=== PATIENT | male | born 1955 | race Caucasian/White ===

== ENCOUNTER 2021-09-24 04:14 | Emergency (ER) | payer MEDICARE ==
[2021-09-24 04:54] VITALS: TEMP 97.9
--- NOTE | 2021-09-24 06:51 | ED ---
Psych HPI - General Source: patient Mode of arrival: EMS - History of Present Illness MD Complaint: other -: hour(s) Associated Psychiatric Symptoms: none Quality: constant Improves With: none Worsens With: none Context: recent alcohol abuse <Louie Aguirre - Last Filed: 09/24/21 06:48> <Joseph Gallegos - Last Filed: 09/25/21 14:12> - General Chief Complaint: Psychiatric Symptoms Stated Complaint: Mental Health Time Seen by Provider: 09/24/21 04:29 - History of Present Illness Initial Comments: This patient is 66-year-old man who presents here to have evaluation of superficial laceration to the left side of his neck. The patient states she had been drinking, he had his knife out and then he slipped and caused a superficial laceration to the left side of his neck. The patient had been making suicidal statements. He states that he is not really feeling suicidal but was attention seeking. (TimothyLouie) Review of Systems ROS Other: All systems not noted in ROS Statement are negative. Constitutional: Denies: fever ENT: Denies: throat pain Respiratory: Denies: cough, dyspnea Cardiovascular: Denies: chest pain, palpitations, syncope Gastrointestinal: Denies: abdominal pain, vomiting, diarrhea Musculoskeletal: Denies: back pain Skin: Denies: rash Neurological: Denies: headache, weakness, numbness Psychiatric: Reports: depression. Denies: auditory hallucinations, visual hallucinations, homicidal thoughts, suicidal thoughts <Louie Aguirre - Last Filed: 09/24/21 06:48> ROS Other: All systems not noted in ROS Statement are negative. <Joseph Gallegos - Last Filed: 09/25/21 14:12> ROS Statement: Those systems with pertinent positive or pertinent negative responses have been documented in the HPI. Past Medical History Past Medical History: Asthma, COPD, Eye Disorder History of Any Multi-Drug Resistant Organisms: None Reported Past Surgical History: Hernia Repair, Orthopedic Surgery, Tonsillectomy Past Psychological History: Depression Smoking Status: Current every day smoker Past Alcohol Use History: Occasional Past Drug Use History: Marijuana <AlphonseLouie hung - Last Filed: 09/24/21 06:48> General Exam Limitations: no limitations General appearance: alert, in no apparent distress Head exam: Present: atraumatic, normocephalic Eye exam: Present: normal appearance. Absent: scleral icterus, conjunctival injection ENT exam: Present: normal oropharynx Neck exam: Present: other (Superficial laceration anterior neck, left aspect.) Respiratory exam: Present: normal lung sounds bilaterally. Absent: respiratory distress, wheezes, rales, rhonchi, stridor Cardiovascular Exam: Present: regular rate, normal rhythm, normal heart sounds. Absent: systolic murmur, diastolic murmur, rubs, gallop GI/Abdominal exam: Present: soft. Absent: tenderness Extremities exam: Present: normal inspection, normal capillary refill Neurological exam: Present: alert, CN II-XII intact Psychiatric exam: Absent: agitated, anxious, flat affect, manic, homicidal ideation, suicidal ideation Skin exam: Present: warm, dry, normal color. Absent: rash <Louie Aguirre - Last Filed: 09/24/21 06:48> Course Vital Signs 09/24/21 09/24/21 04:23 10:26 Temperature 97.9 F Pulse Rate 96 89 Respiratory 15 16 Rate Blood Pressure 162/96 110/72 O2 Sat by Pulse 97 99 Oximetry Medical Decision Making <Joseph Gallegos - Last Filed: 09/25/21 14:12> - Medical Decision Making EPS evaluated the patient and the patient they determined with the psychiatrist that the patient be discharged home with a safety. Patient was in agreement patient was given a safety plan. (Joseph Gallegos) Disposition <Louie Aguirre - Last Filed: 09/24/21 06:48> Is patient prescribed a controlled substance at d/c from ED?: No Time of Disposition: 10:21 <Joseph Gallegos - Last Filed: 09/25/21 14:12> Clinical Impression: Situational depression Disposition: HOME SELF-CARE Referrals: Wes Trujillo MD [Primary Care Provider] - 1-2 days
[2021-09-24 10:28] VITALS: BP 110/72; PULSE 89; RESP 16
== END 2021-09-24 10:27 | disposition home or self-care (01) ==
LOC: EC 04:14
DX: F43.21 Adjustment disorder with depressed mood (principal); F17.200 Nicotine dependence, unspecified, uncomplicated; J44.9 Chronic obstructive pulmonary disease, unspecified
CPT/HCPCS: 82075; 99283

== ENCOUNTER → 2022-12-14 | Outpatient (CLI) | payer MEDICARE ==
[2022-12-14 17:06] LABS: HCT 39.7 % (39.6-50.0); HGB 12.8 d/dL (13.0-17.0); MCH 32.2 pg (27.0-32.0); MCHC 32.2 d/dL (32.0-37.0); Mean Platelet Volume 10.7 FL (9.5-12.2); NRBC Per 100 WBC 0 X 10*3/uL (0.00-0.01); Platelet Count 289 X 10*3/uL (140-440); RBC 3.97 X 10*6/uL (4.40-5.60); RDW 19.9 % (11.5-14.5); WBC 5.31 X 10*3/uL (4.50-10.00)
[2022-12-14 17:13] LABS: Blood Urea Nitrogen 10.1 mg/dL (9.0-27.0); Carbon Dioxide 29.8 mmol/L (21.6-31.8); Chloride 99 mmol/L (96-109); Potassium 4.2 mmol/L (3.5-5.5); Sodium 136 mmol/L (135-145)
== END | disposition home or self-care (01) ==
LOC: LABWHC1 11:23
PROVIDERS: ATTEND Student in an Organized Health Care Education/Training Program
DX: Z01.812 Encounter for preprocedural laboratory examination (principal); I25.5 Ischemic cardiomyopathy
CPT/HCPCS: 36415; 80051; 82565; 84520; 85027

== ENCOUNTER 2022-12-18 07:45 | Day surgery (SDC) | payer MEDICARE ==
[2022-12-13 10:58] VITALS: BMI 24.4
[~2022-12-18 07:45] MED LIST: ALPRAZolam 0.25 MG TAB PO PRN; ALPRAZolam 0.5 MG TAB PO PRN; ASPIRIN 325 MG TAB PO ONE; ATORVASTATIN 80 MG TAB PO ONE; HEPARIN SODIUM,PORCINE (1 ML) 2,500 UNIT in SODIUM CHLORIDE 0.9% 250 ML IRRIGATION PRN; HEPARIN SODIUM,PORCINE 10,000 UNIT in SODIUM CHLORIDE 0.9% 1,000 ML IRRIGATION PRN; NITROGLYCERIN SL TABS 0.4 MG TAB SUBLINGUAL PRN; SODIUM CHLORIDE 0.9% 1,000 ML in EMPTY BAG 1 BAG IV SCH
[2022-12-18 08:25] VITALS: TEMP 98
[2022-12-18] MEDS ORDERED: fentaNYL (PF) 50 MCG/ML 2 ML AMP ONE (09:02)
[2022-12-18] MEDS ORDERED: VERAPAMIL 2.5 MG/ML 2 ML AMP ONE (09:02)
[2022-12-18] MEDS ORDERED: HEPARIN SODIUM 1,000 UN/ML (10ML VL) ONE (09:02)
[2022-12-18] MEDS ORDERED: LIDOCAINE 2% (PF) 20 MG/ML 5 ML VIAL SQ ONE (09:10)
[2022-12-18] MEDS: fentaNYL (PF) 50 MCG/ML 2 ML AMP IVP ONE ×2 (09:12→10:28)
[2022-12-18] MEDS ORDERED: MIDAZOLAM 2 MG/2 ML VIAL IVP ONE (09:12)
[2022-12-18] MEDS ORDERED: VERAPAMIL SYRINGE (5 MG/10 ML) INTRAARTER ONE (09:17)
[2022-12-18] MEDS: NITROGLYCERIN 1000MCG/10ML SYRINGE INTRAARTER ONE ×2 (09:17→09:40)
[2022-12-18] MEDS: HEPARIN SODIUM 1,000 UN/ML (10ML VL) IVP ONE ×4 (09:19→10:37)
[2022-12-18] MEDS ORDERED: IOPAMIDOL-370 100ML BTL INJ ONE ×2 (09:59→10:48)
[2022-12-18] MEDS ORDERED: TICAGRELOR 90 MG TAB ONE (10:22)
--- NOTE | 2022-12-18 10:22 | P.CARDCATH ---
Date of Procedure: 12/18/22 Description of Procedure: Procedures performed 1. Right radial arterial exercise 2. Selective coronary angiography3. Left heart catheterization 4. Moderate conscious sedation for 45 minutes Indication: stable angina and new left ventricular dysfunction Brief history: Patient presents to the clinic with symptoms of substernal chest pain and shortness of breath with minimal exertion. The symptoms have been going on for last 1 month. Patient went to his primary care physician who performed an ECG which showed new Q waves in anterior leads. Bedside echocardiogram performed in the clinic showed an EF in the range of 30-35% with anteroapical hypokinesia. For this he was scheduled for outpatient heart catheterization next All the procedure steps, indications and possible complications including stroke emergent surgery or where explained to the patient and his . They understand the risks of the procedure and would like to proceed with it. Verbal and written consent were obtained. Moderate conscious sedation. Patient's heart rate, blood pressure, ECG and pulse oximetry were monitored throughout the procedure. Patient was given 2 mg of midazolam, and 50 mcg of fentanyl. Moderate conscious sedation was achieved without any complications. Patient did not want any complication during the procedure. Total moderate conscious sedation time was 45 minutes Procedure steps: Patient was prepped and draped in sterile fashion. Right radial access was obtained using modified Seldinger technique. Central guide sheath was inserted 6-Greek. 5 mg verapamil and 200 g of nitroglycerin were administered through the sheath. 4500 U of IV heparin was administered once the catheter reach the aortic root. Right coronary angiography was performed using using JR4 diagnostic catheter. The catheter was exchanged for a JL 3.5 diagnostic catheter and left coronary angiography was performed. The images were carefully reviewed and the case was discussed with school adjustment counselor production line solderer. We decided to proceed with intervention. Please refer to the interventional report for further details. Hemodynamics: Aortic pressure 149/74 Left ventricular pressure 158/5 , LVEDP 18 mmHg There was no significant gradient across the aortic valve Angiographic findings Left main: Arises in the usual fashion. No significant disease. Trifurcates into LAD, LCx and ramus intermedius LAD: Is a large caliber vessel which wraps around the apex. Proximal LAD has 100% stenosis before giving diagonal 1st branch. Mid LAD and diagonal 1 says and retrograde fashion by bridging left to left collaterals. Ramus intermedius: Is a small caliber vessel and is angiography normal LCx: Non Dominant and Is large caliber. Mid LCx 20% luminal irregularity. Modality trifurcates into 3 medium-sized OM branches. The second OM as 20-30% stenosis in mid segment. LCx provides [id number] collaterals and fills PDA retrogradely. RCA: Dominant vessel. There is 100% occlusion of RCA and mid segment. There is left to right collaterals filling the PDA and PL branches retrogradely. Impression Two-vessel disease involving proximal LAD 100% and mid RCA 100%. [id number] collaterals filling PDA and PL branches retrogradely Mildly elevated LVEDP Ischemic cardiac myopathy with LVEF 30% by echo Plan After discussing the case with school adjustment counselor, we decided to intervene on proximal LAD as it is large caliber vessel and supplies collaterals to RCA. Plan is to intervene on LAD and assess patient's symptom and possibly assess the viability of myocardium supplied RCA. If viable by a stress test and if patient is still symptomatic will plan for staged RCA intervention. Further recommendations to follow interventional cardiology report Nishant Doss MD
[2022-12-18] MEDS ORDERED: TICAGRELOR 90 MG TAB PO ONE (10:25)
[2022-12-18] MEDS: NITROGLYCERIN 1000MCG/10ML SYRINGE INTRACORON ONE ×2 (10:35→10:47)
--- NOTE | 2022-12-18 11:06 | P.PRCINT ---
Percutaneous Coronary Int. - Percutaneous Coronary Intervention Percutaneous Coronary Intervention: PROCEDURES PERFORMED: Left coronary angiography, IVUS LAD, PCI LAD with 3.25 x 23mm Xience CONSUELO, post dilated proximally with 4.0 NC balloon INDICATION: Ischemic cardiomyopathy, chest pain with exertion CONSENT:I have discussed the risks, benefits and alternative therapies for the above-mentioned procedure and for both sedation/analgesia as well as necessary blood product administration, if indicated, as they pertain to this patient. The patient has indicated understanding and acceptance of the risks and procedures discussed. PROCEDURE: After the risks, benefits and alternatives of the above mentioned procedure explained in detail with the patient, informed consent was obtained. Patient had already been taken to the catheterization lab and prepped and draped in usual fashion and a 6Fr sheath had been place in the right radial artery. The decision was made to perform PCI of LAD. There appeared to be possibly small antegrade channel and symptoms have been for approximately a month and therefore decision made to attempt wiring. Heparin was given for ACT greater than 250. A 6-Greek CLS 3.5 guide was disease in gauge the left main. Initial attempts at wiring were made with a 0.014 BMW wire, whisper wire and fielder XT wire however were unsuccessful. The wire was behaving more like a chronic 100% occlusion. Next a 0.014, Tool And Die Repairer 200 and a Corsair microcatheter were used and it was easily able to wire the lesion. Angiogram showed appropriate wire position. The wire was exchanged for a long 0.014 BMW wire. Next balloon angioplasty was performed with a 2.5 x 12 mm balloon. Intravascular ultrasound showed distally to the lesion reference vessel 3.25 mm and proximally 4.0 mm. A 3.25 x 23 mm Xience CONSUELO was placed. The proximal edge was postdilated with a 4.0 noncompliant balloon. Initially repeat intravascular ultrasound showed inadequately expanded proximal stent and therefore again the 4.0 noncompliant balloon was deployed proximally. Final angiograms were performed. Pre-in tervention there was 100% stenosis with NIYAH 0 antegrade flow and postintervention there was 0% stenosis with NIYAH 3 flow. There were more robust [id number] collaterals noted. The right radial sheath was removed and a TR band was placed with hemostasis achieved. The patient tolerated the procedure well. Patient was transported back to the post catheterization holding area in stable condition. Conscious Sedation: Patient was monitored under the direct supervision of myself for conscious sedation using Versed and fentanyl for a total duration of 56 minutes HEMODYNAMICS: Aorta: 137/72 SELECTIVE CORONARY ARTERIOGRAPHY: LEFT MAIN: The left main is a large caliber vessel which bifurcates into the LAD and circumflex. There is no significant stenosis. LEFT ANTERIOR DESCENDING CORONARY ARTERY: LAD is a large caliber vessel which wraps around to the apex. There is a proximal LAD 100% stenosis at the level of a moderate caliber septal branch and otherwise mild luminal irregularities. There are [id number] collaterals LEFT CIRCUMFLEX CORONARY ARTERY: Left circumflex is a moderate caliber vessel with mild luminal irregularities. RIGHT CORONARY ARTERY: The right coronary artery was not imaged however known to be on her percent occluded. FINAL IMPRESSION: 1. CAD as described above with 100% proximal LAD, 100% mid RCA stenosis 2. PCI LAD with 3.25 x 23mm Xience CONSUELO PLAN: 1. Aggressive risk factor modification per most recent ACC/AHA guidelines. 2. Continue dual antiplatelets with aspirin and Brillinta for 12 months given unstable angina symptoms. 3. If patient having continued angina may consider PCI ADVERTISING SALES ASSISTANT RCA.
[2022-12-18] MEDS ORDERED: ATROPINE SULFATE 0.1 MG/ML 10ML SYRINGE IV PRN (13:03)
[2022-12-18] MEDS ORDERED: RX INFO: IV CONTRAST WAS GIVEN 1 EACH MISC MISCELLANE PRN (13:03)
[2022-12-18] MEDS ORDERED: MAG HYDROX/AL HYDROX/SIMETH 30 ML CUP PO PRN (13:03)
[2022-12-18] MEDS ORDERED: NITROGLYCERIN SL TABS 0.4 MG TAB SUBLINGUAL PRN (13:03)
[2022-12-18] MEDS ORDERED: ZOLPIDEM 5 MG TAB PO PRN (13:03)
[2022-12-18] MEDS ORDERED: SODIUM CHLORIDE 0.9% 1,000 ML in EMPTY BAG 1 BAG IV SCH (13:15)
[2022-12-18 18:51] VITALS: PULSE 80
[2022-12-18 18:53] VITALS: BP 146/88; RESP 18
[2022-12-18] MEDS ORDERED: TICAGRELOR 90 MG TAB PO SCH (21:00)
[2022-12-19] MEDS ORDERED: lisinopriL 10 MG TAB PO SCH (09:00)
== END 2022-12-18 15:10 | disposition home or self-care (01) ==
LOC: CATHCVL 07:45
PROVIDERS: ATTEND Student in an Organized Health Care Education/Training Program
DX: I25.10 Atherosclerotic heart disease of native coronary artery without angina pectoris (principal); I25.5 Ischemic cardiomyopathy; I11.0 Hypertensive heart disease with heart failure; E78.5 Hyperlipidemia, unspecified; F17.210 Nicotine dependence, cigarettes, uncomplicated; I50.32 Chronic diastolic (congestive) heart failure; Z79.82 Long term (current) use of aspirin; Z79.899 Other long term (current) drug therapy
CPT/HCPCS: 92978; 93458; C9600; C1769 ×8; C1887; C1894; C1725 ×2; C1753; C1874; C1751; J2250; J3010; J1644; Q9967; J2001; J2305